=== PATIENT | male | born 1975 | race Caucasian/White ===

== ENCOUNTER 2022-10-04 10:07 | Emergency (ER) | payer BC | END 2022-10-04 12:25 | disposition home or self-care (01) | LOC: JD.ED 10:07 | DX: R42 Dizziness and giddiness (principal); I10 Essential (primary) hypertension; E11.9 Type 2 diabetes mellitus without complications; Z79.899 Other long term (current) drug therapy; Z79.84 Long term (current) use of oral hypoglycemic drugs | CPT/HCPCS: 36415; 80053; 83036; 83735; 84484; 85025; 93005; 99285 ==